=== PATIENT | female | born 1980 | race Caucasian/White ===

== ENCOUNTER 2020-07-01 15:22 | Emergency (ER) | payer OTHER ==
[2020-07-01 15:34] VITALS: BP 130/90
--- NOTE | 2020-07-01 15:38 | ED Physician Documentation ---
PD HPI UPPER EXT INJURY - Stated complaint Stated Complaint: FELL OFF HORSE - Chief complaint Chief Complaint: Trauma Ext - History obtained from History obtained from: Patient - History of Present Illness Location: Left, Shoulder, Wrist, Other (chestwall) Type of injury: Fall (from horse, landing to left side) Timing - onset: Today Timing - details: Abrupt onset, Still present Worsened by: Moving (left wrist and left shoulder. Pain with deep inspiration and chest movement.), Palpating Associated symptoms: Swelling (left wrist). No: Weakness, Numbness Contributing factors: Other (was wearing a helmet.) Similar symptoms before: Has not had sx before Review of Systems Constitutional: denies: Fever, Chills Nose: denies: Rhinorrhea / runny nose, Congestion Throat: denies: Sore throat Respiratory: denies: Cough PD PAST MEDICAL HISTORY - Past Medical History Past Medical History: No - Present Medications Home Medications: Ambulatory Orders Medication Instructions Recorded Confirmed HYDROcod/ACETAM 5/325 [Warba 5/325] 1 ea PO Q6H PRN #18 tablet 07/01/20 Ibuprofen [Motrin] 600 mg PO TID PRN #25 tab 07/01/20 Sertraline [Zoloft] 50 mg PO DAILY 07/01/20 07/01/20 - Allergies Allergies/Adverse Reactions: Allergies Allergy/AdvReac Type Severity Reaction Status Date / Time No Known Drug Allergies Allergy Verified 07/01/20 15:33 PD ED PE NORMAL - Vitals Vital signs reviewed: Yes - General General: Alert and oriented X 3, Well developed/nourished, Other (appears in pain due to wrist mainly, but guarding ROM of the left shoulder too. ) - HEENT HEENT: Atraumatic - Neck Neck: Supple, no meningeal sign, No bony TTP - Cardiac Cardiac: RRR, No murmur - Respiratory Respiratory: Clear bilaterally, Other (posterolateral left chestwall with some tenderness but no noted crepitance. ) - Abdomen Abdomen: Soft, Non tender - Back Back: No CVA TTP - Derm Derm: Normal color, Warm and dry - Extremities Extremities: Other (Left wrist with tenderness and swelling without gross angulation. Normal pulses color and cap refill distally. Left shoulder with some tenderness at AC area without obvious stepoff. ) - Neuro Neuro: Alert and oriented X 3, No motor deficit, No sensory deficit, Normal speech Eye Opening: Spontaneous Motor: Obeys Commands Verbal: Oriented GCS Score: 15 Results - Vitals Vitals: Vital Signs - 24 hr 07/01/20 15:29 Temperature 36.6 C Heart Rate 87 Respiratory 16 Rate Blood Pressure 130/90 H O2 Saturation 100 Oxygen O2 Source Room air - Rads (name of study) left shoulder Radiology: Prelim report reviewed (no acute process), See rad report left wrist Radiology: Prelim report reviewed (colles fracture, intraarticular with slight depression and dorsal angulation. Pretty close angle. ), See rad report chest Radiology: Prelim report reviewed (normal ribs/lungs), See rad report Procedures - Splint (location) left wrist Splint applied by: Tech Type of splint: Fiberglass, Sugar tong Other: Patient tolerated well, No complications, Neurovascular intact, Sling provided PD MEDICAL DECISION MAKING - ED course Complexity details: reviewed results, considered differential, d/w patient Departure - Departure Disposition: 01 Home, Self Care Clinical Impression: Fall from horse Qualifiers: Encounter type: initial encounter Qualified Code(s): V80.010A - Animal-rider injured by fall from or being thrown from horse in noncollision accident, initial encounter Wrist fracture, closed Qualifiers: Encounter type: initial encounter Laterality: left Qualified Code(s): S62.102A - Fracture of unspecified carpal bone, left wrist, initial encounter for closed fracture Acromioclavicular (AC) joint injury Qualifiers: Encounter type: initial encounter Laterality: left Qualified Code(s): S49.92XA - Unspecified injury of left shoulder and upper arm, initial encounter Chest wall contusion Qualifiers: Encounter type: initial encounter Laterality: left Qualified Code(s): S20.212A - Contusion of left front wall of thorax, initial encounter Condition: Stable Record reviewed to determine appropriate education?: Yes Instructions: ED Sprain AC Joint, ED Fx Colles Wrist No Redu Requ, ED Contusion Chest Wall Follow-Up: Frank Staples MD [Provider Admit Priv/Credential] - Prescriptions: Ibuprofen [Motrin] 600 mg PO TID PRN #25 tab PRN Reason: Pain HYDROcod/ACETAM 5/325 [Warba 5/325] 1 ea PO Q6H PRN #18 tablet PRN Reason: Pain Comments: Keep the splint on and have your wrist elevated rested and iced often to reduce swelling. Use the sling for comfort of the shoulder and arm. Periodic movement of the shoulder so it doesn't stiffen up on you. Anti-inflammatory such as ibuprofen 3 times a day with food. To that add Tylenol or hydrocodone as needed for pain every 4-6 hours. Initial pain should improve significantly over the first several days as the swelling goes down in the initial injury inflammation improves. Call the orthopedic office tomorrow for a follow-up appointment for likely early to mid next week. This allows for the swelling to go down. At that point they can rajendra-ray and see if the position is adequate enough or if it needs reduction or surgery. Return if other symptoms or problems develop in the meanwhile. Discharge Date/Time: 07/01/20 17:15
[2020-07-01] MEDS ORDERED: KETOROLAC 30 MG/ML VIAL IM STA (16:00)
[2020-07-01] MEDS ORDERED: HYDROmorphone 2 MG/ML VIAL IM STA (16:00)
--- NOTE | 2020-07-01 16:29 | XRAY Report ---
PROCEDURE: Chest 1 View X-Ray INDICATIONS: fell from horse TECHNIQUE: One view of the chest was acquired. COMPARISON: None FINDINGS: Surgical changes and devices: None. Lungs and pleura: No pleural effusions or pneumothorax. Lungs are clear. Mediastinum: Mediastinal contours appear normal. Heart size is normal. Bones and chest wall: No suspicious bony lesions. Overlying soft tissues appear unremarkable. IMPRESSION: No acute cardiopulmonary pathology. Reviewed by: Danielito Way MD on 07/01/2020 4:28 PM [facility] Approved by: Danielito Way MD on 07/01/2020 4:28 PM [facility] Station ID: [id number]
--- NOTE | 2020-07-01 16:29 | XRAY Report ---
PROCEDURE: Shoulder 3 View LT INDICATIONS: fell from horse TECHNIQUE: 3 views of the shoulder were acquired. COMPARISON: None. FINDINGS: Bones: No fractures or dislocations. No suspicious bony lesions. Visualized ribs appear intact. Soft tissues: Small calcification adjacent to greater tuberosity of humeral head is seen which may re present calcific tendinitis. IMPRESSION: No gross acute left shoulder fracture or dislocation. No evidence of high-grade AC separ ation. Possible calcific tendinitis involving distal rotator cuff tendon. Reviewed by: Danielito Way MD on 07/01/2020 4:27 PM [facility] Approved by: Danielito Way MD on 07/01/2020 4:27 PM [facility] Station ID: [id number]
--- NOTE | 2020-07-01 16:30 | XRAY Report ---
PROCEDURE: Wrist 4 View LT INDICATIONS: Trauma TECHNIQUE: 5 views of the wrist were acquired. COMPARISON: None FINDINGS: Bones: Acute impacted intra-articular fracture of distal radius is seen with slight dorsal and medial displacement of fractured fragments. Slightly displaced ulnar styloid fracture is also noted.. No s uspicious bony lesions. Scaphoid view: Scaphoid is grossly intact. Soft tissues: No suspicious soft tissue calcifications. IMPRESSION: Acute comminuted, impacted and slightly displaced distal radial intra-articular fracture. Ulnar stylo id fracture. Reviewed by: Danielito Way MD on 07/01/2020 4:29 PM PST Approved by: Danielito Way MD on 07/01/2020 4:29 PM PST Station ID: [id number]
== END 2020-07-01 17:15 | disposition home or self-care (01) ==
LOC: ED 15:22
DX: S52.532A Colles' fracture of left radius, initial encounter for closed fracture (principal); S49.92XA Unspecified injury of left shoulder and upper arm, initial encounter; S20.212A Contusion of left front wall of thorax, initial encounter; V80.010A Animal-rider injured by fall from or being thrown from horse in noncollision accident, initial encounter; Y93.52 Activity, horseback riding
CPT/HCPCS: 29125; 71045; 73030; 73110; 96372; 99284; J1170

== ENCOUNTER 2020-07-07 07:02 | Day surgery (SDC) | payer OTHER ==
[2020-07-07] MEDS ORDERED: ceFAZolin 2 GM/50 ML 2 GM/50 ML BAG IV ONE (07:19)
[2020-07-07] MEDS ORDERED: CELECOXIB 100 MG CAPSULE PO ONE (07:20)
[2020-07-07] MEDS ORDERED: ACETAMINOPHEN 1,000 MG/100 ML 100 ML IV ONE (07:20)
[2020-07-07 07:33] LABS: HCG UR QUAL NEGATIVE
[2020-07-07] MEDS ORDERED: BUPIVACAINE 0.5% PF 30 ML VIAL ONE (07:37)
[2020-07-07] MEDS ORDERED: BACITRACIN ZINC OINT 1 PACKET TOP ONE (07:38)
[2020-07-07] MEDS ORDERED: DEXAMETHASONE 4 MG/ML VIAL ONE (07:51)
[2020-07-07] MEDS ORDERED: PROPOFOL 500 MG/50 ML 500 MG/50 ML VIAL ONE (07:51)
[2020-07-07] MEDS ORDERED: MIDAZOLAM 2 MG/2 ML VIAL ONE (07:51)
[2020-07-07] MEDS ORDERED: ROPIVACAINE 0.5% PF 20 ML AMPULE ONE (07:51)
[2020-07-07] MEDS ORDERED: fentaNYL 100 MCG/2 ML VIAL ONE (07:51)
--- NOTE | 2020-07-07 07:56 | ANESTHESIA ---
Pre-Anesthesia VS, & Labs - Diagnosis L distal radial displaced fracture - Procedure ORIF L distal radius Vital Signs: Temp Pulse Resp BP Pulse Ox 36.5 C 87 15 131/78 H 98 07/07/20 07:15 07/07/20 07:15 07/07/20 07:15 07/07/20 07:15 07/07/20 07:15 Height: 5 ft 4 in Weight (kg): 71.8 kg Body Mass Index: 27.1 BMI Classification: Overweight - NPO >8 hours - Is Patient ?: No - Lab Results Current Lab Results: Laboratory Tests 07/07/20 07:40: POC Whole Bld Glucose 113 H Lab results reviewed: Yes Home Medications and Allergies Sertraline [Zoloft] 50 mg PO DAILY 07/01/20 Allergies/Adverse Reactions: Allergies Allergy/AdvReac Type Severity Reaction Status Date / Time No Known Drug Allergies Allergy Verified 07/06/20 16:14 Anes History & Medical History - Anesthetic History Anesthesia Complications: reports: No previous complications Family history of Anesthesia Complications: Denies Family history of Malignant Hyperthermia: Denies - Medical History Cardiovascular: reports: None Pulmonary: reports: None Gastrointestinal: reports: None Urinary: reports: None Musculoskeletal: reports: Chronic back pain, Other Endocrine/Autoimmune: reports: Other Skin: reports: None Smoking Status: Never smoker - Surgical History Eyes Ears Nose Throat (EENT): reports: Tonsil/Adenoidectomy Exam General: Alert, Oriented x3, Cooperative Dental: WNL Mouth Openin Fingerbreadth Neck Mobility: Normal Mallampati classification: II Thyromental Distance: 4-6 cm Respiratory: Lungs clear, Normal breath sounds, No respiratory distress Cardiovascular: Regular rate Neurological: Normal speech Mental/Cognitive Status: Alert/Oriented X3, Normal for patient Cognitive Status: Within normal limits Plan Anesthesia Type: MAC, Supraclavicular Block Regional Block: Per Surgeon's request for Post Op pain control Consent for Procedure(s) Verified and Reviewed: Yes Code Status: Attempt Resuscitation ASA classification: 1-Healthy patient Is this case an emergency?: No
[2020-07-07 08:21] LABS: CORONAVIRUS 229E-RESP PCR NOT DETECTED; CORONAVIRUS HKU1-RESP PCR NOT DETECTED; CORONAVIRUS NL63-RESP PCR NOT DETECTED; CORONAVIRUS OC43-RESP PCR NOT DETECTED; HUMAN METAPNEUMOVIRUS NOT DETECTED; SARS-CoV-2 -RESP PCR PANEL NOT DETECTED
[2020-07-07 08:22] LABS: B. PARAPERTUSSIS- RESP PCR PAN NOT DETECTED; B. PERTUSSIS- RESP PCR PANEL NOT DETECTED; C. PNEUMONIAE- RESP PCR PANEL NOT DETECTED; INFLUENZA A- RESP PCR PANEL NOT DETECTED; INFLUENZA B - RESP PCR PANEL NOT DETECTED; M. PNEUMONIAE- RESP PCR PANEL NOT DETECTED; PARAINFLUENZA VIRUS 1 NOT DETECTED; PARAINFLUENZA VIRUS 2 NOT DETECTED; PARAINFLUENZA VIRUS 3 NOT DETECTED; PARAINFLUENZA VIRUS 4 NOT DETECTED; RHINOVIRUS/ENTEROVIRUS NOT DETECTED; RSV- RESP PCR PANEL NOT DETECTED
[2020-07-07] MEDS ORDERED: BUPIVACAINE 0.25% PF 30 ML VIAL SUBQ ONE (09:05)
[2020-07-07] MEDS ORDERED: ONDANSETRON 4 MG/2 ML VIAL ONE (09:14)
[2020-07-07] MEDS ORDERED: HYDROmorphone 1 MG/ML CARPUJECT ONE (10:28)
--- NOTE | 2020-07-07 10:48 | OPERATIVE REPORT ---
Operative Report - General Procedure Date: 07/07/20 Planned Procedure: Open reduction internal fixation left distal radius Pre-Op Diagnosis: Displaced intra-articular fracture left distal radius with ulnar styloid fr Procedure Performed: Open reduction internal fixation left distal radius with volar locking plate, [employer]ier [employer]hew, 3-hole plate Post Op Diagnosis: Closed, displaced intra-articular fracture left distal radius with ulnar st - Procedure Note Primary Surgeon: Leroy Ramon MD Secondary Surgeon: Edgardo SHIPMAN Anesthesia Provider: Corey Blake CRNA Anesthesia Technique: General ET tube, Regional block Estimated Blood Loss (mL): 10 Findings: Closed, displaced intra-articular fracture left distal radius with diastases of the distal radius at the lunate fossa. There is some mild comminution, shortening in angulation at the fracture site. Complications: None noted - Other Other Information/Narrative: Patient was brought to the operating room. She was placed in the supine position. A pneumatic tourniquet was applied to the proximal left arm over cast padding. An arm extension table was utilized. The left upper extremity was prepped and draped in a sterile manner in the usual fashion. A timeout procedure was performed by the entire operating room team and all were in agreement. A sterile drape was applied over the C arm. The C-arm was used intermittently throughout the procedure for multiplanar views. The C-arm was brought in from the end of the table with surgeon and catalog library assistant on opposite sides of the table. A physician catalog library assistant was utilized to help with exposure, protection of vital structures, reduction and internal fixation as an catalog library assistant. A volar radial incision was made over the left distal radius after the left upper extremity had been exsanguinated, pneumatic tourniquet elevated to 200 mmHg. The flexor carpi radialis was identified and the anterior sheath was opened. The flexor carpi radialis was retracted in a ulnar direction and the posterior floor of the flexor carpi radialis was gently opened longitudinally releasing the pronator. The flexor pollicis longus was retracted in a ulnar direction with the flexor carpi radialis. The radial artery and vein was protected. The fracture was reduced using fingertrap traction and a traction bow to all fingers. A K wire was inserted from radial to ulnar parallel to the joint to stabilize the articular fragment which could be visualized extending into the ulnar metaphysis of the distal radius. The 3-hole Puneet's [employer] locking plate was inserted. The most distal K wire hole was inserted and the distance from the watershed area look very good on the lateral view. The oval hole in the proximal shaft was then filled with a screw which stabilized the plate proximally. This allowed filling of the screws in the distal row from ulnar to radial using the C-arm image intensifier to verify position of screw. All of the screws were extra-articular and unicortical. Care was taken not to penetrate the cortex dorsally with the drill bit. All of the distal screws were 2.4 mm locking screws. The distal locking guide was removed. Final x-rays were obtained, true AP, lateral, 45 degree supination and pronation views as well as a tangential view. The distal radial ulnar joint was stable in supination, neutral and pronation. There was no block to range of motion of the left wrist. The pneumatic tourniquet was deflated after 86 minutes. The wound was irrigated. The pronator was repaired with 3-0 Vicryl. The subcutaneous tissue was closed with 3-0 Monocryl and a subcuticular suture with 3-0 Monocryl was performed. Dermabond was applied to the skin. A padded short arm volar fiberglass splint was applied. She tolerated the procedure well.
[2020-07-07] MEDS ORDERED: HYDROcod/ACETAM 5/325 MG TABLET PO PRN (10:59)
[2020-07-07] MEDS ORDERED: HYDROcod/ACETAM 10 MG/325 MG TABLET PO PRN (10:59)
[2020-07-07] MEDS ORDERED: KETOROLAC 15 MG/ML VIAL IVP STA (10:59)
--- NOTE | 2020-07-07 11:00 | XRAY Report ---
PROCEDURE: OR C-Arm Procedure INDICATIONS: DISTAL RADIUS FX TECHNIQUE: 4 intraoperative fluoroscopic images are provided for evaluation. COMPARISON: X-ray wrist 07/01/2020 FINDINGS: Intraoperative images demonstrate ORIF of previously identified distal radial fracture. Hardware is i ntact and there is good anatomic alignment. Fracture lucencies are visualized. Ulna styloid fracture is noted. IMPRESSION: Intraoperative distal radial ORIF. Reviewed by: Rosi Sauceda MD on 07/07/2020 10:59 AM PDT Approved by: Rosi Sauceda MD on 07/07/2020 10:59 AM PDT Station ID: [id number]
[2020-07-07] MEDS ORDERED: LACTATED RINGERS 1,000 ML IV ONE (11:16)
[2020-07-07] MEDS ORDERED: oxyCODONE 5 MG TABLET PO PRN (11:20)
--- NOTE | 2020-07-07 12:02 | ANESTHESIA POST OP EVALUATION ---
Anesthesia Post Eval - Post Anesthesia Eval Vitals: Last Vital Signs Temp 36.2 C L 07/07/20 11:53 Pulse 90 07/07/20 11:53 Resp 15 07/07/20 11:53 BP 120/69 07/07/20 11:53 Pulse Ox 98 07/07/20 11:53 CV Function Including HR & BP: positive: Stable Pain Control: positive: Satisfactory Nausea & Vomiting: positive: Negative Mental Status: positive: Baseline Respiratory Status: Airway Patent Hydration Status: Satisfactory Anesthesia Complications: positive: None
[2020-07-07 12:06] VITALS: BP 131/90
== END 2020-07-07 07:03 | disposition home or self-care (01) ==
LOC: SDS 07:02
PROVIDERS: ATTEND Orthopaedic Surgery
DX: S52.572A Other intraarticular fracture of lower end of left radius, initial encounter for closed fracture (principal); S52.612A Displaced fracture of left ulna styloid process, initial encounter for closed fracture; E66.3 Overweight; Z68.27 Body mass index [BMI] 27.0-27.9, adult; Z20.822 Contact with and (suspected) exposure to COVID-19
CPT/HCPCS: 0202U; 25608; 81025; A9270; C1713; J0131; J0690; J1170; J7120

== ENCOUNTER 2020-09-07 08:00 | Outpatient (CLI) | payer OTHER ==
--- NOTE | 2020-09-07 15:20 | XRAY Report ---
PROCEDURE: Wrist 3 View LT INDICATIONS: INTRAARTICULAR FX OF DISTAL L RADIUS TECHNIQUE: 3 views of the wrist were acquired. COMPARISON: X-ray wrist 08/31/2020 FINDINGS: Bones: In interval since the prior exam there is been fixation of comminuted, intra-articular distal radial fracture. Hardware is intact with good anatomic alignment. Ulna styloid fracture is again note d. No suspicious bony lesions. Scaphoid view: Not obtained. Soft tissues: No suspicious soft tissue calcifications. IMPRESSION: Interval ORIF of distal radial fracture with good anatomic alignment. Ulna styloid fracture is noted. Reviewed by: Rosi Sauceda MD on 09/07/2020 3:19 PM PDT Approved by: Rosi Sauceda MD on 09/07/2020 3:19 PM PDT Station ID: [id number]
== END 2020-09-07 23:59 | disposition home or self-care (01) ==
LOC: DI.N 08:00
PROVIDERS: ATTEND Physician Assistant
DX: S52.572D Other intraarticular fracture of lower end of left radius, subsequent encounter for closed fracture with routine healing (principal); S52.612A Displaced fracture of left ulna styloid process, initial encounter for closed fracture